=== PATIENT | female | born 1935 | race Caucasian/White ===

== ENCOUNTER 2018-07-06 14:35 | Inpatient (IN) | payer MEDICARE ==
[2018-07-06] MEDS ORDERED: ORPHENADRINE 30 MG/ML 2 ML VIAL IM STA (15:30)
[2018-07-06] MEDS ORDERED: methylPREDNISolone SOD SUCCI 125 MG/2 ML VIAL IM ONE (15:30)
[2018-07-06] MEDS ORDERED: MORPHINE SULFATE 4 MG/ML SYRINGE IM STA (15:30)
[2018-07-06] MEDS ORDERED: HYDROcodone/APAP 5-325MG 1 EACH TAB PO STA (15:41)
--- NOTE | 2018-07-06 15:59 | ED ---
Lower Extremity Injury HPI - General Source: patient, family Mode of arrival: wheelchair Limitations: no limitations <Ngozi Polanco - Last Filed: 07/06/18 18:52> <Luis Carrington - Last Filed: 07/06/18 19:05> - General Chief Complaint: Extremity Injury, Lower Stated Complaint: Foot injury Time Seen by Provider: 07/06/18 15:28 - History of Present Illness Initial Comments: 82-year-old female patient presents the emergency department today for evaluation of pain and swelling to the left foot and ankle. Patient does have this history of Alzheimer's and family provides most of history. They state the patient had a fall on Friday. Grandson states that she got up out of her chair and tripped. He denies her hitting her head or any loss of consciousness. States that she has been complaining of pain to the ankle and foot since then. States they have kept it wrapped however it seemed to be more swollen and she is now unable to ambulate. States that she has been taking ibuprofen for pain but it is not helping. Denies any new neck or back pain. Patient denies any headache, chest pain, shortness of breath, dizziness, weakness, abdominal pain, nausea, vomiting, or difficulties with bowel movements or urination. (Ngozi Polanco) - Related Data Allergies Allergy/AdvReac Type Severity Reaction Status Date / Time No Known Allergies Allergy Verified 07/06/18 15:05 Review of Systems ROS Other: All systems not noted in ROS Statement are negative. <Ngozi Polanco - Last Filed: 07/06/18 18:52> ROS Other: All systems not noted in ROS Statement are negative. <Luis Carrington - Last Filed: 07/06/18 19:05> ROS Statement: Those systems with pertinent positive or pertinent negative responses have been documented in the HPI. Past Medical History Past Medical History: Dementia, Hyperlipidemia, Hypertension History of Any Multi-Drug Resistant Organisms: None Reported Past Surgical History: Breast Surgery, Hysterectomy Past Psychological History: No Psychological Hx Reported Smoking Status: Never smoker Past Alcohol Use History: None Reported Past Drug Use History: None Reported <Ngozi Polanco - Last Filed: 07/06/18 18:52> General Exam Limitations: no limitations General appearance: alert, in no apparent distress, other (Social well-developed , well-nourished elderly female patient in no acute distress. Vital signs upon presentation are temperature 98.4F, pulse 71, respirations 20, blood pressure 107/86, pulse ox 96% on room air.) Eye exam: Present: normal appearance, PERRL, EOMI. Absent: scleral icterus, conjunctival injection, periorbital swelling ENT exam: Present: normal exam, normal oropharynx, mucous membranes moist Neck exam: Present: normal inspection, full ROM, other (Nontender, no step-off, no deformity to firm midline palpation of the posterior cervical spine. Full range of motion without pain or limitation.). Absent: tenderness, meningismus, lymphadenopathy Respiratory exam: Present: normal lung sounds bilaterally. Absent: respiratory distress, wheezes, rales, rhonchi, stridor Cardiovascular Exam: Present: regular rate, normal rhythm, normal heart sounds. Absent: systolic murmur, diastolic murmur, rubs, gallop, clicks GI/Abdominal exam: Present: soft, normal bowel sounds. Absent: distended, tenderness, guarding, rebound, rigid Back exam: Present: normal inspection, other (Nontender, no step-off, no deformity to firm midline palpation of the thoracic and lumbar vertebrae. Full range of motion without pain or limitation.). Absent: vertebral tenderness Neurological exam: Present: alert, oriented X3, CN II-XII intact Psychiatric exam: Present: normal affect, normal mood Skin exam: Present: warm, dry, intact, normal color. Absent: rash <Ngozi Polanco - Last Filed: 07/06/18 18:52> Course <Ngozi Polanco - Last Filed: 07/06/18 18:52> <Luis Carrington - Last Filed: 07/06/18 19:05> Vital Signs 07/06/18 07/06/18 07/06/18 15:02 17:32 17:45 Temperature 98.4 F Pulse Rate 71 71 63 Respiratory 20 18 Rate Blood Pressure 107/86 178/83 179/81 O2 Sat by Pulse 96 100 100 Oximetry 07/06/18 07/06/18 07/06/18 17:48 17:53 17:58 Temperature Pulse Rate 63 135 H 102 H Respiratory 18 20 22 Rate Blood Pressure 157/72 211/90 230/101 O2 Sat by Pulse 99 98 99 Oximetry 07/06/18 07/06/1807/06/18 18:03 18:10 18:35 Temperature Pulse Rate 74 66 64 Respiratory 18 18 18 Rate Blood Pressure 184/83 158/71 136/69 O2 Sat by Pulse 98 100 100 Oximetry - Reevaluation(s) Reevaluation #1: 07/06/18 18:23 And P supervision: I personally saw and examined the patient. I reviewed and agree with the [employer] findings including all diagnostic interpretation treatment plans is written unless otherwise stated. I did discuss the findings with the patient's family members were present. (Luis Carrington) Procedures <Ngozi Polanco - Last Filed: 07/06/18 18:52> - Orthopedic Fracture Reduction Fracture #1 Consent Obtained: verbal consent, emergent situation Side: left Fracture Reduction Location: tibia, fibula Analgesia: procedural sedation Technique: direct manipulation Post Reduction X-rays Demonstrate: anatomical reduction Post-Reduction Neuro Exam: intact Post-Reduction Vascular Exam: intact Splint Applied: Yes (Short leg OCL posterior mold and stirrup) - Procedural Sedation Procedural Sedation Start Time: 17:46 Indications: fracture/dislocation reduction ASA Class: III Mallampati Airway Score: 2 Preparation: night monitor applied, pulse oximeter, capnometry used, supplemental O2 applied, reversal agents at bedside, suction/airway equipment at bedside, IV secured IV Propofol Dose (mgs): 70 Patient Tolerated Procedure: well, other (The patient did demonstrate some nausea vomiting she was adequately treated and was elevated she was given a tonsil suction the patient was awake alert during this episode.) <Luis Carrington - Last Filed: 07/06/18 19:05> - Procedural Sedation Additional Comments: Total in-service time 26 minutes seizure started at 1746 and was completed 18: 12. (Luis Carrington) Medical Decision Making - Radiology Data Radiology results: report reviewed, image reviewed <Ngozi Polanco - Last Filed: 07/06/18 18:52> <Luis Carrington - Last Filed: 07/06/18 19:05> - Medical Decision Making 82-year-old female patient percents to the emergency department today for evaluation of left ankle pain since Friday after a fall injury. Physical examination did reveal soft tissue swelling surrounding the left ankle and foot. Neurovascular status is intact. X-ray was obtained and did show acute fracture dislocation of the left ankle. Attending Dr. Carrington was in to evaluate the patient, did perform conscious sedation with closed reduction of the left ankle. Did have anatomic improvement on postreduction x-ray. My attending did speak to the orthopedic physician operational risk consultant Dr. Osborne who agrees to accept patient as an admission. Patient would be unable to tolerate going home as she does have dementia and is unable to ambulate. We will obtain preoperative labs and consult medical for preop clearance. (Ngozi Polanco) - Radiology Data 3 views of the left ankle and foot are obtained. There is acute oblique displaced fractures of the lateral malleolus above more days. There is acute displaced transverse fracture to the medial malleolus with lateral shifting of the distal fracture fragment. There is mortise disruption which is displaced laterally and had abnormal lateral angulation. Moderate diffuse subcutaneous edema is present. On lateral view there is fracture extension into the posterior malleolus. There are small anterior and tiny superior calcaneal spurs. There is no additional acute fracture dislocation evident in the left foot. Moderate diffuse subcutaneous edema is seen. Flexion and ptosis noted. Impression by Dr. Vallejo shows acute displaced try malleolus fracture with mortise disruption. Two-view postreduction x-ray of the left ankle was obtained. There is interval improvement in the alignment when compared with previous reduction. Impression is by Nika Tapia. (Ngozi Polanco) Disposition Decision to Admit Reason: Admit from EC Decision Date: 07/06/18 Decision Time: 18:56 <Ngozi Polanco - Last Filed: 07/06/18 18:52> <Luis Carrington - Last Filed: 07/06/18 19:05> Clinical Impression: Trimalleolar fracture of left ankle, Fracture dislocation of left ankle Disposition: ADMITTED IP TO THIS [facility] Condition: Serious Referrals: Rajeev Kyle MD [Primary Care Provider] - 1-2 days
--- NOTE | 2018-07-06 16:22 | XR ---
EXAMINATION TYPE: XR ankle complete LT, XR foot complete LT DATE OF EXAM: 07/06/2018 CLINICAL HISTORY: Pain after fall injury. TECHNIQUE: Frontal, lateral and oblique images of the left ankle and foot are obtained. COMPARISON: None. FINDINGS: There is acute oblique displaced fracture through the lateral malleolus above mortise. The re is acute displaced transverse fracture through the medial malleolus with lateral shifting of dista l fracture fragment. There is mortise disruption which is displaced laterally and has abnormal latera l angulation. Moderate diffuse subcutaneous edema is present. On lateral view there is fracture exten jena into the posterior malleolus. There are small inferior and tiny superior calcaneal spurs. There is no additional acute fracture or dislocation evident in the left foot. Moderate diffuse subcu taneous edema is seen. Flexion in toes is noted. IMPRESSION: There is acute displaced trimester fracture with mortise disruption. (Initial encounter closed type post traumatic fracture)
[2018-07-06] MEDS ORDERED: PROPOFOL 10 MG/ML 20 ML VIAL IV STA (17:01)
[2018-07-06] MEDS ORDERED: ONDANSETRON 4 MG/2 ML VIAL IVP STA (17:57)
--- NOTE | 2018-07-06 18:37 | XR ---
PROCEDURE: XR ankle limited LT -2V DATE AND TIME: 07/06/2018 6:09 PM CLINICAL INDICATION: H Post reduction TECHNIQUE: Department protocol. COMPARISON: None FINDINGS: Orthogonal views taken through a cast, obscuring detail. The anatomic positioning and alignment of the fracture fragments are documented. There is interval improvement in the alignment when compared with prereduction 07/06/2018 views at 4: 16 PM. IMPRESSION: Post reduction views.
[2018-07-06] MEDS ORDERED: NALOXONE 0.4 MG/ML 1 ML VIAL IV PRN (18:49)
[2018-07-06] MEDS ORDERED: ONDANSETRON 4 MG/2 ML VIAL IVP PRN (18:49)
[2018-07-06] MEDS ORDERED: MORPHINE SULFATE 4 MG/ML SYRINGE IV PRN (18:49)
[2018-07-06 19:41] LABS: Basophils % (A) 0 %; Eosinophils # (A) 0.1 k/uL (0-0.7); Eosinophils % (A) 1 %; HCT 34.1 % (34.0-46.0); HGB 11.1 gm/dL (11.4-16.0); Lymphocytes # (A) 1.5 k/uL (1.0-4.8); Lymphocytes % (A) 21 %; MCH 25.3 pg (25.0-35.0); MCHC 32.5 g/dL (31.0-37.0); MCV 77.8 fL (80.0-100.0); Mean Platelet Volume 7.4; Microcytosis Slight; Monocytes # (A) 0.5 k/uL (0-1.0); Monocytes % (A) 7 %; Neutrophils # (A) 4.8 k/uL (1.3-7.7); Neutrophils % (A) 68 %; Platelet Count 262 k/uL (150-450); RBC 4.39 m/uL (3.80-5.40); RDW 15.5 % (11.5-15.5); WBC 7.1 k/uL (3.8-10.6)
[2018-07-06 19:48] LABS: Albumin 3.8 g/dL (3.5-5.0); Calcium 8.6 mg/dL (8.4-10.2); Potassium 3.4 mmol/L (3.5-5.1); Total Bilirubin 0.8 mg/dL (0.2-1.3); Total Protein 7.2 g/dL (6.3-8.2)
--- NOTE | 2018-07-06 19:52 | XR ---
EXAMINATION: XR chest 1V portable DATE AND TIME: 07/06/2018 7:26 PM CLINICAL INDICATION: Pain TECHNIQUE: AP upright portable COMPARISON: None. FINDINGS: There is consolidative opacity in the right perihilar position, appearing to reside within the right lower lobe. Hemidiaphragms are both elevated consistent with low lung inflation at the moment of X-ray exposure. The pleural spaces appear to be negative, as seen. The cardiac silhouette is not enlarged. The remainder of the mediastinal silhouette is unremarkable. The skeletal structures and soft tissues are negative for acute findings. IMPRESSION: Suspect right lower lobe pneumonia.
[2018-07-06 19:54] LABS: Partial Thromboplastin Time 25.3 sec (22.0-30.0); Prothrombin Time 9.7 sec (9.0-12.0)
[2018-07-06] MEDS: MEMANTINE 10 MG TAB PO SCH (22:45)
[2018-07-06] MEDS: ATORVASTATIN 40 MG TAB PO SCH (22:45)
[2018-07-06] MEDS: MELATONIN 5 MG TABLET PO PRN (22:45)
[2018-07-06] MEDS: traMADol 50 MG TAB PO PRN (22:45)
[2018-07-07] MEDS: MEMANTINE 10 MG TAB PO SCH ×2 (08:56→21:10)
--- NOTE | 2018-07-07 10:54 | P.CNOR ---
History of Present Illness - [facility] Consult date: 07/07/18 Requesting physician: Lico Osborne Consult reason: fracture History of present illness: Patient is an 82-year-old female patient admitted through the emergency department yesterday for evaluation of pain and swelling to the left foot and ankle. Patient does have history of Alzheimer's and family provides most of history. They state the patient had a fall on Friday. Grandson states that she got up out of her chair and tripped. He denies her hitting her head or any loss of consciousness. Xrays in the ED showed a left trimalleoular ankle fracture dislocation which was then reduced and placed in a splint. She denies any new neck or back pain. Patient denies any numbness, tingling, calf pain, headache, chest pain, shortness of breath, dizziness, weakness, abdominal pain, nausea, vomiting, or difficulties with bowel movements or urination Review of Systems All systems: negative Constitutional: Denies chills, Denies fever Eyes: denies blurred vision, denies pain Ears, nose, mouth and throat: Denies headache, Denies sore throat Cardiovascular: Denies chest pain, Denies shortness of breath Respiratory: Denies cough Gastrointestinal: Denies abdominal pain, Denies diarrhea, Denies nausea, Denies vomiting Genitourinary: Denies dysuria, Denies hematuria Musculoskeletal: Denies myalgias Integumentary: Denies pruritus, Denies rash Neurological: Denies numbness, Denies weakness Psychiatric: Denies anxiety, Denies depression Endocrine: Denies fatigue, Denies weight change Past Medical History Past Medical History: CVA/TIA, Dementia, GERD/Reflux, Hyperlipidemia, Hypertension, Memory Impairment, Rheumatoid Arthritis (RA) Additional Past Medical History / Comment(s): neuropathy,tia's, faell few weeks ago broke ris rt side. tx in past for dm with po meds and insulin -but now just diet controlled History of Any Multi-Drug Resistant Organisms: None Reported Past Surgical History: Breast Surgery, Hysterectomy Additional Past Surgical History / Comment(s): benign tumor removed from breast , fatty tumor removed rt arm, lt knee replacment Past Anesthesia/Blood Transfusion Reactions: No Reported Reaction Smoking Status: Never smoker - Past Family History Mother Family Medical History: Diabetes Mellitus Father Family Medical History: No Reported History Additional Family Medical History / Comment(s): from old age Medications and Allergies Home Medications Medication Instructions Recorded Confirmed Type Acetaminophen [Tylenol] 325 mg PO Q4H PRN 07/06/18 07/06/18 History Atorvastatin [Lipitor] 40 mg PO HS 07/06/18 07/06/18 History Benazepril HCl 20 mg PO DAILY 07/06/18 07/06/18 History Calcium Carbonate [Calcium] 600 mg PO DAILY 07/06/18 07/06/18 History DULoxetine HCL [Cymbalta] 20 mg PO DAILY 07/06/18 07/06/18 History Docusate [Colace] 100 mg PO DAILY 07/06/18 07/06/18 History Memantine [Namenda] 10 mg PO BID 07/06/18 07/06/18 History Multivitamins, Thera [Multivitamin 1 tab PO DAILY 07/06/18 07/06/18 History (formulary)] Allergies Allergy/AdvReac Type Severity Reaction Status Date / Time No Known Allergies Allergy Verified 07/06/18 15:05 Physical Examination Inspection of the left lower extremity shows a moderately swollen left ankle. There are no wounds or erythema. There is no obvious deformity. The ankle and foot are warm to touch. ROM is not tested due to fracture. She is able to wiggle all toes. She has sensation in all toes. There is 1+ DP pulse and less than 2 sec cap refill present. Calf is soft and nontender. Results XRays of the left ankle show a displaced trimalleolar ankle fracture. - Labs Labs: Abnormal Lab Results - Last 24 Hours (Table) 07/06/18 07/06/18 Range/Units 18:30 18:30 Hgb 11.1 L (11.4-16.0) gm/dL MCV 77.8 L (80.0-100.0) fL Potassium 3.4 L (3.5-5.1) mmol/L BUN 20 H (7-17) mg/dL Creatinine 1.27 H (0.52-1.04) mg/dL Glucose 109 H (74-99) mg/dL H & H 07/06/18 Range/Units 18:30 Hgb 11.1 L (11.4-16.0) gm/dL Hct 34.1 (34.0-46.0) % Coagulation 07/06/18 Range/Units 18:30 INR 1.0 (<1.2) Result Diagrams: 07/06/18 18:30 07/06/18 18:30 - Diagnostic results Ankle/Foot x-ray: report reviewed, image reviewed Assessment and Plan (1) Fracture dislocation of left ankle Narrative/Plan: Plan will be to proceed with surgical intervention including ORIF of left trimal ankle fracture once sweling subsides. We will tentatively plan for 07/09/18. She will need pre-op clearance. She is to be NPO after midnight 07/08/18. Maintain Splint, elevation and ice in the interim. Recommend continued DVT prophylaxis and pain management. Current Visit: Yes Status: Acute Priority: Medium Code(s): S82.892A - OTH FRACTURE OF LEFT LOWER LEG, INIT FOR CLOS FX SNOMED Code(s): 157088223 (2) Trimalleolar fracture of left ankle Current Visit: Yes Status: Acute Priority: Medium Code(s): S82.852A - DISPLACED TRIMALLEOLAR FRACTURE OF LEFT LOWER LEG, INIT SNOMED Code(s): 590291513 Time with Patient: Less than 30
[2018-07-07] MEDS: traMADol 50 MG TAB PO PRN ×2 (12:45→21:10)
--- NOTE | 2018-07-07 20:49 | US ---
EXAMINATION TYPE: US kidneys/renal and bladder DATE OF EXAM: 07/07/2018 COMPARISON: NONE CLINICAL HISTORY: urinary retention. Urinary retention. Exam limitations due to broken ankle unable t o roll and body habitus. EXAM MEASUREMENTS: Right Kidney: 10.2 x 4.8 x 4.1 cm Left Kidney: 10.1 x 4.4 x 4.1 cm Right Kidney: No hydronephrosis or masses seen Left Kidney: No hydronephrosis or masses seen Bladder: Appears anechoic limited due to complex mass. Bilateral Jets seen: Not definitely seen. There is no evidence for hydronephrosis at this point in time. The urinary bladder is anechoic. There is a complex mass with septations seen mid line measuring 16.1 x 11.0 x 10.8cm question ovarian in origin. IMPRESSION: No evidence of renal stone or obstruction. 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
[2018-07-07] MEDS: ATORVASTATIN 40 MG TAB PO SCH (21:11)
--- NOTE | 2018-07-07 22:08 | P.CONS ---
History of Present Illness - Reason for Consult Consult date: 07/07/18 Medical management of hypertension and surgical clearance. - Chief Complaint Right ankle pain status post fall - History of Present Illness Patient is a 82-year-old female with a known history of CVA/TIA, Dementia, GERD/ Reflux, Hyperlipidemia, Hypertension, Memory Impairment, Rheumatoid Arthritis ( RA), peripheral neuropathy with history of diabetes, currently diet-controlled was brought to the ER with complaints of right foot and ankle pain. Patient is a poor historian due to underlying dementia. As per her grandson, patient came home from attending a marriage. After coming home patient was trying to get out of chair and tipped over and fell. Patient's grandson heard the sound and went over to check. Patient denied any hitting her head. No loss of consciousness. Since then she has been complaining of left pain. Patient was having increased swelling and pain which made her to come to the hospital. Denied any neck pain and back pain. No history of seizures. Patient denies any headache, chest pain, shortness of breath, dizziness, weakness, abdominal pain, nausea, vomiting, or difficulties with bowel movements or urination. Recently patient was having urinary incontinence and was seen by urology. Recommended to get ultrasound kidneys. X-ray of the left ankle showed acute displaced trimalleolar fracture with the mortise disruption. Patient is being followed by orthopedic surgery and is planning for OR. Ultrasound renal showed no hydronephrosis. 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 Chest x-ray showed suspected right lower lobe pneumonia. Review of Systems Abdomen: Patient denied nausea vomiting and diarrhea and abdominal pain. Cardiovascular: Patient denies any chest pain or short of breath no palpitations. Respiratory: patient denied any cough is from production. No shortness of breath Neurologic: Patient denied any numbness or tingling headache. Musculoskeletal: Patient does have left ankle pain. Complete review of systems could not be obtained from the patient due to underlying dementia. Past Medical History Past Medical History: CVA/TIA, Dementia, GERD/Reflux, Hyperlipidemia, Hypertension, Memory Impairment, Rheumatoid Arthritis (RA) Additional Past Medical History / Comment(s): neuropathy,tia's, faell few weeks ago broke ris rt side. tx in past for dm with po meds and insulin -but now just diet controlled History of Any Multi-Drug Resistant Organisms: None Reported Past Surgical History: Breast Surgery, Hysterectomy Additional Past Surgical History / Comment(s): benign tumor removed from breast , fatty tumor removed rt arm, lt knee replacment Past Anesthesia/Blood Transfusion Reactions: No Reported Reaction Smoking Status: Never smoker - Past Family History Mother Family Medical History: Diabetes Mellitus Father Family Medical History: No Reported History Additional Family Medical History / Comment(s): from old age Medications and Allergies Home Medications Medication Instructions Recorded Confirmed Type Acetaminophen [Tylenol] 325 mg PO Q4H PRN 07/06/18 07/06/18 History Atorvastatin [Lipitor] 40 mg PO HS 07/06/18 07/06/18 History Benazepril HCl 20 mg PO DAILY 07/06/18 07/06/18 History Calcium Carbonate [Calcium] 600 mg PO DAILY 07/06/18 07/06/18 History DULoxetine HCL [Cymbalta] 20 mg PO DAILY 07/06/18 07/06/18 History Docusate [Colace] 100 mg PO DAILY 07/06/18 07/06/18 History Memantine [Namenda] 10 mg PO BID 07/06/18 07/06/18 History Multivitamins, Thera [Multivitamin 1 tab PO DAILY 07/06/18 07/06/18 History (formulary)] Allergies Allergy/AdvReac Type Severity Reaction Status Date / Time No Known Allergies Allergy Verified 07/06/18 15:05 Physical Exam Vitals: Vital Signs Temp Pulse Pulse Resp BP BP Pulse Ox 07/07/18 08:00 68 16 07/07/18 07:00 98.0 F 68 16 123/63 98 07/07/18 03:15 98.9 F 73 20 132/62 99 07/06/18 21:48 98.4 F 64 20 173/71 98 07/06/18 20:24 97.5 F L 61 18 163/85 100 07/06/18 18:35 64 18 136/69 100 07/06/18 18:10 66 18 158/71 100 07/06/18 18:03 74 18 184/83 98 07/06/18 17:58 102 H 22 230/101 99 07/06/18 17:53 135 H 20 211/90 98 07/06/18 17:48 63 18 157/72 99 07/06/18 17:45 63 18 179/81 100 07/06/18 17:32 71 178/83 100 07/06/18 15:02 98.4 F 71 20 107/86 96 Intake and Output 07/06/18 07/07/18 07/07/18 22:59 06:59 14:59 Intake Total 0 Balance 0 Intake: Oral 0 Other: Voiding Method Bedpan # Voids 0 Weight 108.862 kg PHYSICAL EXAMINATION: Patient is lying in the bed comfortably, no acute distress, awake alert and oriented x1.. HEENT: Normocephalic. Neck is supple. Pupils reactive. Nostrils clear. Oral cavity is moist. Ears reveal no drainage. Neck reveals no JVD, carotid bruits, or thyromegaly. CHEST EXAMINATION: Trachea is central. Symmetrical expansion. Lung spencer clear to auscultation and percussion. CARDIAC: Normal S1, S2 with no gallops. No murmurs ABDOMEN: Soft. Distended. Bowel sounds normal. No abdominal bruits. Extremities: reveal no edema in the right lower extremity. Left lower extremity /ankle is swollen and Nelson bandaged. No clubbing or cyanosis Neurologically awake, alert, oriented x1 with well-coordinated movements. No focal deficits noted Skin: No rash or skin lesions. Psychiatric: Coperative. Could not be assessed completely Musculoskeletal: No joint swelling or deformity. Normal range of motion in all other joints except above. Results CBC & Chem 7: 07/06/18 18:30 07/06/18 18:30 Labs: Abnormal Lab Results - Last 24 Hours (Table) 07/06/18 07/06/18 Range/Units 18:30 18:30 Hgb 11.1 L (11.4-16.0) gm/dL MCV 77.8 L (80.0-100.0) fL Potassium 3.4 L (3.5-5.1) mmol/L BUN 20 H (7-17) mg/dL Creatinine 1.27 H (0.52-1.04) mg/dL Glucose 109 H (74-99) mg/dL Assessment and Plan Assessment: Left ankle fracture status post mechanical fall Possible right lower lobe pneumonia Mild Acute kidney injury with possible CK D3 Recent history of rib fractures as per family. Peripheral neuropathy with history of diabetes. Was on insulin before. Currently diet-controlled Large ovarian cystic tumor History of CVA/TIA Dementia Alzheimer's GERD Hypertension Hyperlipidemia History of rheumatoid arthritis DVT prophylaxis Plan: Patient will be continued on pain medications and bowel regimen. Continue with home medications and antibiotics in the form of azithromycin and ceftriaxone.. DVT prophylaxis with heparin subcu. Patient does not have active chest pain or shortness of breath. Does history of CVA/TIA and possible CK D-3. Patient is a moderate risk for low risk orthopedic surgery. We will continue to follow closely and further recommendations based on the clinical course. Prognosis is guarded. Discussed with the family in detail at bedside. Time with Patient: Greater than 30
[2018-07-07] MEDS: AZITHROMYCIN 500 MG TAB PO SCH (23:16)
[2018-07-07] MEDS: HEPARIN SODIUM,PORCINE 5,000 UNIT/ML 1 ML VIAL SQ SCH (23:16)
[2018-07-08] MEDS: HEPARIN SODIUM,PORCINE 5,000 UNIT/ML 1 ML VIAL SQ SCH ×3 (09:28→23:45)
[2018-07-08] MEDS: AZITHROMYCIN 500 MG TAB PO SCH (09:28)
[2018-07-08] MEDS: MEMANTINE 10 MG TAB PO SCH ×2 (09:28→20:40)
[2018-07-08] MEDS: DULoxetine HCL 20 MG CAPSULE.DR PO SCH (09:28)
[2018-07-08] MEDS: LISINOPRIL 20 MG TAB PO SCH (09:28)
[2018-07-08] MEDS: DOCUSATE 100 MG CAP PO SCH (09:28)
[2018-07-08 11:05] LABS: Basophils % (A) 0 %; Eosinophils # (A) 0.2 k/uL (0-0.7); Eosinophils % (A) 4 %; HCT 30.5 % (34.0-46.0); HGB 9.9 gm/dL (11.4-16.0); Lymphocytes # (A) 1.4 k/uL (1.0-4.8); Lymphocytes % (A) 26 %; MCH 25.6 pg (25.0-35.0); MCHC 32.5 g/dL (31.0-37.0); MCV 78.7 fL (80.0-100.0); Monocytes # (A) 0.3 k/uL (0-1.0); Monocytes % (A) 6 %; Neutrophils # (A) 3.5 k/uL (1.3-7.7); Neutrophils % (A) 62 %; Platelet Count 213 k/uL (150-450); RBC 3.88 m/uL (3.80-5.40); RDW 15.1 % (11.5-15.5); WBC 5.6 k/uL (3.8-10.6)
[2018-07-08 11:17] LABS: Calcium 8.3 mg/dL (8.4-10.2); Potassium 3.6 mmol/L (3.5-5.1)
--- NOTE | 2018-07-08 14:04 | P.PN ---
Subjective Progress Note Date: 07/08/18 Principal diagnosis: Left Timal ankle fracture Patient is pending surgical correction of her left trimal ankle fracture. Pain is controlled today at rest in splint. She has no new complaints. She denies numbness, tingling or calf pain. Review of systems is negative for fever, chills, chest pain, shortness of breath or other Objective - Vital Signs Vital signs: Vital Signs Temp 98.1 F 07/08/18 07:00 Pulse 64 07/08/18 07:00 Resp 20 07/08/18 07:00 BP 139/80 07/08/18 07:00 Pulse Ox 98 07/08/18 07:00 Intake & Output 07/07/18 07/08/18 07/08/18 18:59 06:59 18:59 Intake Total 200 Balance 200 Intake: Oral 200 Other: Voiding Method Bedpan Bedpan # Voids 1 1 - Exam There is moderate edema. No blisters or wounds. Mild improvement. Neurovascular status is intact throughout the lower extremity with motor and sensation fully intact. Calf is soft and nontender. 2+ dorsalis pedis pulse and less than 2 second cap refill is present. - Constitutional General appearance: Present: no acute distress - Labs CBC & Chem 7: 07/08/18 10:31 07/08/18 10:31 Labs: Abnormal Lab Results - Last 24 Hours (Table) 07/08/18 07/08/18 Range/Units 10:31 10:31 Hgb 9.9 L (11.4-16.0) gm/dL Hct 30.5 L (34.0-46.0) % MCV 78.7 L (80.0-100.0) fL Chloride 109 H (98-107) mmol/L BUN 20 H (7-17) mg/dL Creatinine 1.26 H (0.52-1.04) mg/dL Glucose 141 H (74-99) mg/dL Calcium 8.3 L (8.4-10.2) mg/dL Assessment and Plan (1) Fracture dislocation of left ankle Narrative/Plan: Plan will be to proceed with surgical intervention including ORIF of left trimal ankle fracture. We will tentatively plan for 07/09/18. She will need pre-op clearance. She is to be NPO after midnight 07/08/18. Maintain Splint , elevation and ice in the interim. Recommend continued DVT prophylaxis and pain management. Current Visit: Yes Status: Acute Priority: Medium Code(s): S82.892A - OTH FRACTURE OF LEFT LOWER LEG, INIT FOR CLOS FX SNOMED Code(s): 878314582 (2) Trimalleolar fracture of left ankle Current Visit: Yes Status: Acute Priority: Medium Code(s): S82.852A - DISPLACED TRIMALLEOLAR FRACTURE OF LEFT LOWER LEG, INIT SNOMED Code(s): 338749464 Time with Patient: Less than 30
[2018-07-08] MEDS: traMADol 50 MG TAB PO PRN (15:22)
--- NOTE | 2018-07-08 17:05 | P.HPOB ---
History of Present Illness H&P Date: 07/08/18 Chief Complaint: Pelvic mass This is an 82-year-old 0 woman who was admitted after an unfortunate trip and fall resulting in a ankle fracture that is to require surgical repair. As a part of her hospitalization she did undergo a abdominal ultrasound due to history of urinary retention. This was to assess bladder and kidneys however incidentally a 16 x 11 cm cystic pelvic mass likely of ovarian origin was noted. The patient is pleasant and communicative and does report a history of difficulty emptying her bladder completely. She also reports starting several months ago feeling like her abdomen is "hard". That actually has resolved and she says her abdomen feels soft now. She had been scheduled to undergo ultrasound evaluation for urinary retention but then this fall happened and she was admitted. She denies any abdominal pain. She reports a hysterectomy many many years ago. All of her children are adopted and she had no pregnancies herself. She is uncertain the reason for her hysterectomy. She denies any previous knowledge of pelvic mass or gynecologic problems. She denies vaginal bleeding, blood in the stool or urine. She is accompanied by her daughter who confirms the history as stated. Review of Systems Constitutional: Reports weakness Ears, nose, mouth and throat: Denies headache Breasts: bilateral: masses Cardiovascular: Denies chest pain, Denies shortness of breath Respiratory: Denies cough Gastrointestinal: Denies abdominal pain, Denies BRBPR, Denies change in bowel habits, Denies constipation, Denies diarrhea, Denies heartburn, Denies nausea, Denies vomiting Genitourinary: Reports difficulty voiding, Reports incomplete emptying, Denies abnormal vaginal bleeding, Denies dysuria, Denies hematuria, Denies pelvic pain , Denies stress incontinence Musculoskeletal: Reports as per HPI Neurological: Reports memory loss Hematologic/Lymphatic: Denies easy bleeding, Denies easy bruising Past Medical History Past Medical History: CVA/TIA, Dementia, GERD/Reflux, Hyperlipidemia, Hypertension, Memory Impairment, Rheumatoid Arthritis (RA) Additional Past Medical History / Comment(s): neuropathy,tia's, faell few weeks ago broke ris rt side. tx in past for dm with po meds and insulin -but now just diet controlled History of Any Multi-Drug Resistant Organisms: None Reported Past Surgical History: Breast Surgery, Hysterectomy Additional Past Surgical History / Comment(s): benign tumor removed from breast , fatty tumor removed rt arm, lt knee replacment Past Anesthesia/Blood Transfusion Reactions: No Reported Reaction Smoking Status: Never smoker - Past Family History Mother Family Medical History: Diabetes Mellitus Father Family Medical History: No Reported History Additional Family Medical History / Comment(s): from old age Medications and Allergies Home Medications Medication Instructions Recorded Confirmed Type Acetaminophen [Tylenol] 325 mg PO Q4H PRN 07/06/18 07/06/18 History Atorvastatin [Lipitor] 40 mg PO HS 07/06/18 07/06/18 History Benazepril HCl 20 mg PO DAILY 07/06/18 07/06/18 History Calcium Carbonate [Calcium] 600 mg PO DAILY 07/06/18 07/06/18 History DULoxetine HCL [Cymbalta] 20 mg PO DAILY 07/06/18 07/06/18 History Docusate [Colace] 100 mg PO DAILY 07/06/18 07/06/18 History Memantine [Namenda] 10 mg PO BID 07/06/18 07/06/18 History Multivitamins, Thera [Multivitamin 1 tab PO DAILY 07/06/18 07/06/18 History (formulary)] Allergies Allergy/AdvReac Type Severity Reaction Status Date / Time No Known Allergies Allergy Verified 07/06/18 15:05 Exam Vital Signs Temp Pulse Resp BP Pulse Ox 07/08/18 15:00 97.7 F 78 17 193/78 100 07/08/18 07:00 98.1 F 64 20 139/80 98 07/07/18 22:52 98.2 F 67 16 137/75 96 Intake and Output 07/08/18 07/08/18 07/08/18 06:59 14:59 22:59 Intake Total 50 Balance 50 Intake: Intake, IV Titration 50 Amount cefTRIAXone 1,000 mg In 50 Sodium Chloride 0.9% 50 ml @ 100 mls/hr IVPB Q24H [facility] Rx#:[id number] Other: Voiding Method Bedpan # Voids 1 This is a pleasant elderly -[place] female in no obvious distress. Left lower extremity with orthopedic stabilization. HEENT exam remarkable for some absent dentition. Her breathing is unlabored and her heart is of regular rate and rhythm. The abdomen is obese, soft, nontender and nondistended. There is no evidence of fluid wave or ascites. She has no rebound or guarding. She does have an incontinence garment and which is inspected with no evidence of vaginal bleeding. Pelvic examination is deferred secondary to body habitus and inappropriate setting for FACTORY ENGINEER exam. Neurologically the patient is alert and oriented and cooperative. Results Result Diagrams: 07/08/18 10:31 07/08/18 10:31 Abnormal Lab Results - Last 24 Hours (Table) 07/08/18 07/08/18 Range/Units 10:31 10:31 Hgb 9.9 L (11.4-16.0) gm/dL Hct 30.5 L (34.0-46.0) % MCV 78.7 L (80.0-100.0) fL Chloride 109 H (98-107) mmol/L BUN 20 H (7-17) mg/dL Creatinine 1.26 H (0.52-1.04) mg/dL Glucose 141 H (74-99) mg/dL Calcium 8.3 L (8.4-10.2) mg/dL US - abdomen: report reviewed, image reviewed, other (16 x 11 x 10 cm septated pelvic mass with no increase in Doppler flow to the septations. No ascites or free fluid noted in the pelvis.) Assessment and Plan (1) Pelvic mass Narrative/Plan: 82-year-old 0 woman status post hysterectomy decades ago who has incidental finding of 16 cm septated pelvic mass on abdominal ultrasound. I reviewed findings in detail with the patient and her daughter. 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 I recommend a CA-125 level to help with the differential diagnosis. My review of the images indicate this mass is not compressing significantly the ureters or kidneys or bladder. There is no contraindication off from my standpoint for proceeding with the planned orthopedic procedure. I will follow up with her CA 125 level and recommendations. Current Visit: Yes Status: Acute Code(s): R19.00 - INTRA-ABD AND PELVIC SWELLING, MASS AND LUMP, UNSP SITE SNOMED Code(s): 66299673 (2) Fracture dislocation of left ankle Current Visit: Yes Status: Acute Priority: Medium Code(s): S82.892A - OTH FRACTURE OF LEFT LOWER LEG, INIT FOR CLOS FX SNOMED Code(s): 339343768 (3) Trimalleolar fracture of left ankle Current Visit: Yes Status: Acute Priority: Medium Code(s): S82.852A - DISPLACED TRIMALLEOLAR FRACTURE OF LEFT LOWER LEG, INIT SNOMED Code(s): 683771690
[2018-07-08] MEDS: ATORVASTATIN 40 MG TAB PO SCH (20:40)
[2018-07-09 01:15] LABS: Glucose,Whole Blood 149 mg/dL (75-99)
[2018-07-09] MEDS: MELATONIN 5 MG TABLET PO PRN ×2 (01:31→23:11)
[2018-07-09] MEDS: HEPARIN SODIUM,PORCINE 5,000 UNIT/ML 1 ML VIAL SQ SCH ×3 (09:58→23:11)
[2018-07-09] MEDS: MEMANTINE 10 MG TAB PO SCH ×2 (10:00→21:55)
[2018-07-09] MEDS: DULoxetine HCL 20 MG CAPSULE.DR PO SCH (10:00)
[2018-07-09] MEDS: traMADol 50 MG TAB PO PRN (10:00)
[2018-07-09] MEDS: LISINOPRIL 20 MG TAB PO SCH (10:00)
[2018-07-09] MEDS: AZITHROMYCIN 500 MG TAB PO SCH (10:00)
[2018-07-09] MEDS: DOCUSATE 100 MG CAP PO SCH (10:00)
[2018-07-09] MEDS ORDERED: IV FLUID CONTINUATION 1,000 ML IV ONE (14:17)
[2018-07-09] MEDS ORDERED: KETAMINE 10 MG/ML 20 ML VIAL ONE (15:26)
[2018-07-09] MEDS ORDERED: PROPOFOL 10 MG/ML 20 ML VIAL IV ONE (15:26)
[2018-07-09] MEDS ORDERED: GLYCOPYRROLATE 0.2 MG/ML 2 ML VIAL ONE (15:26)
[2018-07-09] MEDS ORDERED: fentaNYL (PF) 50 MCG/ML 2 ML AMP ONE (15:26)
[2018-07-09] MEDS ORDERED: MIDAZOLAM 2 MG/2 ML VIAL ONE (15:26)
[2018-07-09] MEDS ORDERED: TEMAZEPAM 15 MG CAP PO PRN (15:35)
[2018-07-09] MEDS ORDERED: SENNOSIDES-DOCUSATE SODIUM 1 EACH TAB PO PRN (15:35)
[2018-07-09] MEDS ORDERED: diphenhydrAMINE 25 MG CAP PO PRN (15:35)
[2018-07-09] MEDS ORDERED: HYDROmorphone 1 MG/ML 1 ML SYRINGE IVP PRN ×2 (15:35)
[2018-07-09] MEDS ORDERED: HYDROcodone/APAP 5-325MG 1 EACH TAB PO PRN (15:35)
[2018-07-09] MEDS ORDERED: ROPIVACAINE 5 MG/ML 30 ML VIAL MISCELLANE ONE (15:57)
[2018-07-09] MEDS ORDERED: ceFAZolin 1,000 MG in SODIUM CHLORIDE 0.9% 1,000 ML IRRIGATION ONE (15:59)
[2018-07-09] MEDS: ceFAZolin IN SWFI 2 GM/20 ML SYRINGE IVP SCH ×2 (18:14→23:12)
[2018-07-09] MEDS: LACTATED RINGERS 1,000 ML IV SCH (18:14)
[2018-07-09] MEDS: HYDROcodone/APAP 5-325MG 1 EACH TAB PO PRN (19:27)
[2018-07-09 19:33] LABS: Basophils % (A) 0 %; Eosinophils # (A) 0.2 k/uL (0-0.7); Eosinophils % (A) 4 %; HCT 31.3 % (34.0-46.0); HGB 10.1 gm/dL (11.4-16.0); Lymphocytes # (A) 1.5 k/uL (1.0-4.8); Lymphocytes % (A) 26 %; MCH 25.2 pg (25.0-35.0); MCHC 32.4 g/dL (31.0-37.0); MCV 77.9 fL (80.0-100.0); Mean Platelet Volume 7.6; Microcytosis Slight; Monocytes # (A) 0.3 k/uL (0-1.0); Monocytes % (A) 5 %; Neutrophils # (A) 3.8 k/uL (1.3-7.7); Neutrophils % (A) 63 %; Platelet Count 239 k/uL (150-450); RBC 4.02 m/uL (3.80-5.40); RDW 15.3 % (11.5-15.5)
[2018-07-09] MEDS: ATORVASTATIN 40 MG TAB PO SCH (21:55)
[2018-07-09] MEDS: HYDROmorphone 1 MG/ML 1 ML SYRINGE IVP PRN (23:16)
--- NOTE | 2018-07-10 00:06 | OP ---
OPERATIVE REPORT DATE OF PROCEDURE: 07/09/2018. PREOPERATIVE DIAGNOSIS: Left bimalleolar ankle fracture. POSTOPERATIVE DIAGNOSIS: Left bimalleolar ankle fracture. OPERATION PERFORMED: Open reduction, internal fixation, left bimalleolar ankle fracture. SURGEON: Lico Osborne M.D. BUTTERMAKER HELPER: Jesus SWEENEY. ANESTHESIA: Spinal with sedation. ESTIMATED BLOOD LOSS: 50 mL. TOURNIQUET: Time was 40 minutes at 250 mmHg. COMPLICATIONS: None apparent. DRAINS: None. DISPOSITION: Postanesthesia care unit. INDICATIONS: Aracelis is a very pleasant 82-year-old female who fell at home approximately 5 days ago. She initially thought she sprained her ankle. She presented to the emergency department 2 days later. She was found to have a displaced bimalleolar ankle fracture. She was provisionally reduced by the emergency department. Due to the fact she is an independent ambulator, lived at home and could not ambulate with this fracture, we did admit her to my service. She was seen by the medical service preoperatively. She was cleared for surgery. We did follow her swelling and she had just a minimal amount of swelling for the type of injury surgery she had. We deemed it safe to proceed with open reduction, internal fixation of her bimalleolar ankle fracture at this time. The risks of procedure were discussed with her in detail. These risks include, but are not limited to risk of infection, nerve damage, bleeding, pain and risk of deep vein thrombosis which could lead to fatal pulmonary embolism. Further risks include possibility for failure of the hardware or failure of the fracture to heal, which could necessitate further operation. All of her questions with regard to the procedure were answered to her satisfaction. Appropriate informed consent was obtained. DESCRIPTION OF THE PROCEDURE: Patient identified in preoperative holding area. Surgical site was marked by both the patient and myself. She was given 2 g of Ancef IV for prophylactic purposes. She was then transported to the operative suite. She was placed supine on the operative table. Spinal anesthetic was then administered and dosed per the anesthesia without apparent complication. A bump was placed under her left hip to aid in exposure of the lateral malleolus. The tourniquet was also placed high on the left upper thigh well-padded in preparation for surgery. The patient's left lower extremity is then prepped and draped in usual sterile fashion. Standard surgical pause undertaken to ensure that we were operating the correct site and that appropriate preop antibiotics were given. All staff in the room in agreement and we proceeded. The leg was exsanguinated with an Esmarch dressing. The tourniquet was inflated to 250 mmHg. I started with the lateral side. We made a planned 10-12 cm incision starting at the distal tip of the fibula and extending proximally in line with the fibula. This was along the posterior 1/3 of the fibular fibula. Dissection was carried down sharply to the bone. As minimal soft tissue stripping as possible was done. The fracture was very clean oblique Reid B fracture. Was reduced fairly readily with traction and reduction clamps. The reduction was confirmed with fluoroscopic imaging. I then proceeded with fixation of fibular fracture. Utilized a 7 hole Synthes 1/3 tubular plate. This was also confirmed via fluoroscopy. The plate fit very nicely. This gave me 6 cortices of fixation both proximal and distal to the fracture. Plate was then applied with 3 3.5 mm bicortical nonlocking screws proximal to the fracture and 3 4.0 mm cancellous screws distal to the fracture. All screws had fairly good purchase in bone. These were placed in a compression mode to compress the fracture further. I then proceeded with fixation of the medial malleolus fracture. A small 3 cm curvilinear incision over the distal medial malleolus was then made. Dissection was then carried down to the fracture. Great care was taken to avoid any iatrogenic damage to the saphenous nerve or saphenous vein. The fracture was identified. The wound was thoroughly irrigated. There was no incarcerated fractures within the joint. The cartilage appeared good as viewed through the fracture site. The fracture was then reduced with a [id number] clamp. The fracture reduction was confirmed with fluoroscopy. I then placed 2 4.0 mm partially-threaded cannulated screws set for fixation. Both screws had excellent purchase in bone. They were parallel and within the fracture. Fluoroscopic imaging confirmed their placement. At this point time, the ankle was stressed. The mortise was stable. There was not any indication for syndesmotic screws. At this point, we proceeded with closure. The final fluoroscopic images were taken. The wounds were thoroughly irrigated with sterile saline solution with antibiotic added. The tourniquet was deflated at 40 minutes. The deep fascia was closed with 0 Vicryl interrupted suture. Subcutaneous tissue closed with 2-0 Vicryl interrupted suture. The skin was closed with stainless steel lewis. Sterile compressive dressing was then applied. The patient's left lower extremity was then placed into a well-padded posterior molded splint with side stirrups. All sponge and needle counts were deemed correct prior to closure. The patient tolerated the procedure without apparent complication. She was transferred to the recovery room in stable condition. MMODL / IJN: [id number] /
--- NOTE | 2018-07-10 03:08 | P.PN ---
Subjective Progress Note Date: 07/08/18 Principal diagnosis: Left ankle fractures Left ovarian cystic mass Patient is a 82-year-old female with a known history of CVA/TIA, Dementia, GERD/ Reflux, Hyperlipidemia, Hypertension, Memory Impairment, Rheumatoid Arthritis ( RA), peripheral neuropathy with history of diabetes, currently diet-controlled was brought to the ER with complaints of right foot and ankle pain. Patient is a poor historian due to underlying dementia. As per her grandson, patient came home from attending a marriage. After coming home patient was trying to get out of chair and tipped over and fell. Patient's grandson heard the sound and went over to check. Patient denied any hitting her head. No loss of consciousness. Since then she has been complaining of left pain. Patient was having increased swelling and pain which made her to come to the hospital. Denied any neck pain and back pain. No history of seizures. Patient denies any headache, chest pain, shortness of breath, dizziness, weakness, abdominal pain, nausea, vomiting, or difficulties with bowel movements or urination. Recently patient was having urinary incontinence and was seen by urology. Recommended to get ultrasound kidneys. X-ray of the left ankle showed acute displaced trimalleolar fracture with the mortise disruption. Patient is being followed by orthopedic surgery and is planning for OR. Ultrasound renal showed no hydronephrosis. 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 Chest x-ray showed suspected right lower lobe pneumonia. 07/08/2018 Patient denied any complaints of chest pain or shortness of breath. Left ankle pain is much improved. Orthopedics is planning for or tomorrow. No fever no chills. Patient was seen by PROFESSOR COMPUTER SCIENCE for cystic ovarian tumor and outpatient follow-up was recommended. No other acute overnight issues. Current medications reviewed Objective - Vital Signs Vital signs: Vital Signs Temp 97.7 F 07/08/18 15:00 Pulse 78 07/08/18 15:00 Resp 17 07/08/18 15:00 BP 193/78 07/08/18 15:00 Pulse Ox 100 07/08/18 15:00 Intake & Output 07/08/18 07/08/18 07/09/18 06:59 18:59 06:59 Intake Total 200 50 Balance 200 50 Intake: Intake, IV Titration 50 Amount cefTRIAXone 1,000 mg In 50 Sodium Chloride 0.9% 50 ml @ 100 mls/hr IVPB Q24H [facility] Rx#:[id number] Oral 200 Other: Voiding Method Bedpan # Voids 1 - Exam PHYSICAL EXAMINATION: Patient is lying in the bed comfortably, no acute distress, awake alert and oriented x1.. HEENT: Normocephalic. Neck is supple. Pupils reactive. Nostrils clear. Oral cavity is moist. Ears reveal no drainage. Neck reveals no JVD, carotid bruits, or thyromegaly. CHEST EXAMINATION: Trachea is central. Symmetrical expansion. Lung spencer clear to auscultation and percussion. CARDIAC: Normal S1, S2 with no gallops. No murmurs ABDOMEN: Soft. Distended. Bowel sounds normal. No abdominal bruits. Extremities: reveal no edema in the right lower extremity. Left lower extremity /ankle is swollen and Nelson bandaged. No clubbing or cyanosis Neurologically awake, alert, oriented x1 with well-coordinated movements. No focal deficits noted Skin: No rash or skin lesions. Psychiatric: Coperative. Could not be assessed completely Musculoskeletal: No joint swelling or deformity. Normal range of motion in all other joints except above. - Labs CBC & Chem 7: 07/09/18 19:16 10 10:31 Labs: Abnormal Lab Results - Last 24 Hours (Table) 07/08/18 07/08/18 Range/Units 10:31 10:31 Hgb 9.9 L (11.4-16.0) gm/dL Hct 30.5 L (34.0-46.0) % MCV 78.7 L (80.0-100.0) fL Chloride 109 H (98-107) mmol/L BUN 20 H (7-17) mg/dL Creatinine 1.26 H (0.52-1.04) mg/dL Glucose 141 H (74-99) mg/dL Calcium 8.3 L (8.4-10.2) mg/dL Assessment and Plan Assessment: Left ankle fracture status post mechanical fall Possible right lower lobe pneumonia Mild Acute kidney injury with possible CK D3 Recent history of rib fractures as per family. Peripheral neuropathy with history of diabetes. Was on insulin before. Currently diet-controlled Large ovarian cystic tumor. CA-125 was ordered History of CVA/TIA Dementia Alzheimer's GERD Hypertension Hyperlipidemia History of rheumatoid arthritis DVT prophylaxis Plan: Patient will be continued on pain medications and bowel regimen. Continue with home medications and antibiotics in the form of azithromycin and ceftriaxone.. DVT prophylaxis with heparin subcu. Patient does not have active chest pain or shortness of breath. Does history of CVA/TIA and possible CK D-3. Patient is a moderate risk for low risk orthopedic surgery. We will continue to follow closely and further recommendations based on the clinical course. Prognosis is guarded. Discussed with the family in detail at bedside.
--- NOTE | 2018-07-10 03:09 | P.PN ---
Subjective Progress Note Date: 07/09/18 Principal diagnosis: Left ankle fractures Left ovarian cystic mass Patient is a 82-year-old female with a known history of CVA/TIA, Dementia, GERD/ Reflux, Hyperlipidemia, Hypertension, Memory Impairment, Rheumatoid Arthritis ( RA), peripheral neuropathy with history of diabetes, currently diet-controlled was brought to the ER with complaints of right foot and ankle pain. Patient is a poor historian due to underlying dementia. As per her grandson, patient came home from attending a marriage. After coming home patient was trying to get out of chair and tipped over and fell. Patient's grandson heard the sound and went over to check. Patient denied any hitting her head. No loss of consciousness. Since then she has been complaining of left pain. Patient was having increased swelling and pain which made her to come to the hospital. Denied any neck pain and back pain. No history of seizures. Patient denies any headache, chest pain, shortness of breath, dizziness, weakness, abdominal pain, nausea, vomiting, or difficulties with bowel movements or urination. Recently patient was having urinary incontinence and was seen by urology. Recommended to get ultrasound kidneys. X-ray of the left ankle showed acute displaced trimalleolar fracture with the mortise disruption. Patient is being followed by orthopedic surgery and is planning for OR. Ultrasound renal showed no hydronephrosis. 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 Chest x-ray showed suspected right lower lobe pneumonia. 07/08/2018 Patient denied any complaints of chest pain or shortness of breath. Left ankle pain is much improved. Orthopedics is planning for or tomorrow. No fever no chills. Patient was seen by SOLE TACKER for cystic ovarian tumor and outpatient follow-up was recommended. No other acute overnight issues. 07/09/2018 Patient is scheduled for or today for right ankle surgery. No complaints of chest pain or shortness of breath. No other acute overnight issues. Current medications reviewed Objective - Vital Signs Vital signs: Vital Signs Temp 97.9 F 07/09/18 16:59 Pulse 62 07/09/18 21:19 Resp 16 07/09/18 17:30 BP 161/71 07/09/18 21:19 Pulse Ox 97 07/09/18 17:30 Intake & Output 07/09/18 07/09/18 07/10/18 06:59 18:59 06:59 Intake Total 626 Output Total 50 Balance 576 Intake: IV 626 Output: Estimated Blood Loss 50 Other: Voiding Method Bedpan # Voids 2 2 - Exam PHYSICAL EXAMINATION: Patient is lying in the bed comfortably, no acute distress, awake alert and oriented x1.. HEENT: Normocephalic. Neck is supple. Pupils reactive. Nostrils clear. Oral cavity is moist. Ears reveal no drainage. Neck reveals no JVD, carotid bruits, or thyromegaly. CHEST EXAMINATION: Trachea is central. Symmetrical expansion. Lung spencer clear to auscultation and percussion. CARDIAC: Normal S1, S2 with no gallops. No murmurs ABDOMEN: Soft. Distended. Bowel sounds normal. No abdominal bruits. Extremities: reveal no edema in the right lower extremity. Left lower extremity /ankle is swollen and Nelson bandaged. No clubbing or cyanosis Neurologically awake, alert, oriented x1 with well-coordinated movements. No focal deficits noted Skin: No rash or skin lesions. Psychiatric: Coperative. Could not be assessed completely Musculoskeletal: No joint swelling or deformity. Normal range of motion in all other joints except above. - Labs CBC & Chem 7: 07/09/18 19:16 07/08/18 10:31 Labs: Abnormal Lab Results - Last 24 Hours (Table) 07/08/18 07/09/18 07/09/18 Range/Units 10:35 01:13 19:16 Hgb 10.1 L (11.4-16.0) gm/dL Hct 31.3 L (34.0-46.0) % MCV 77.9 L (80.0-100.0) fL POC Glucose (mg/dL) 149 H (75-99) mg/dL CA 125 Antigen 50.2 H (0.0-30.1) U/mL Assessment and Plan Assessment: Left ankle fracture status post mechanical fall Possible right lower lobe pneumonia Mild Acute kidney injury with possible CK D3 Recent history of rib fractures as per family. Peripheral neuropathy with history of diabetes. Was on insulin before. Currently diet-controlled Large ovarian cystic tumor. CA-125 was ordered History of CVA/TIA Dementia Alzheimer's GERD Hypertension Hyperlipidemia History of rheumatoid arthritis DVT prophylaxis Plan: Patient will be continued on pain medications and bowel regimen. Continue with home medications and antibiotics in the form of azithromycin and ceftriaxone.. DVT prophylaxis with heparin subcu. Patient does not have active chest pain or shortness of breath. Does history of CVA/TIA and possible CK D-3. Patient is a moderate risk for low risk orthopedic surgery. We will continue to follow closely and further recommendations based on the clinical course. Prognosis is guarded. Discussed with the family in detail at bedside.
[2018-07-10] MEDS: HYDROmorphone 1 MG/ML 1 ML SYRINGE IVP PRN ×3 (05:52→20:26)
[2018-07-10] MEDS: LACTATED RINGERS 1,000 ML IV SCH ×3 (06:21→23:22)
[2018-07-10] MEDS: amLODIPine 5 MG TAB PO SCH (06:45)
[2018-07-10] MEDS: LISINOPRIL 20 MG TAB PO SCH (06:45)
--- NOTE | 2018-07-10 08:32 | FL ---
Fluoroscopy HISTORY: Open reduction internal fixation, fracture 12 seconds fluoroscopy time supplied to the referring clinician. 4 intraoperative C-arm images docum ent the procedure. See dictated report from orthopedic surgery.
--- NOTE | 2018-07-10 08:33 | XR ---
left ankle HISTORY: Open reduction internal fixation 4 intraoperative C-arm images document the procedure.
[2018-07-10] MEDS: AZITHROMYCIN 500 MG TAB PO SCH (08:47)
[2018-07-10] MEDS: HEPARIN SODIUM,PORCINE 5,000 UNIT/ML 1 ML VIAL SQ SCH ×3 (08:47→23:27)
[2018-07-10] MEDS: DOCUSATE 100 MG CAP PO SCH (08:47)
[2018-07-10] MEDS: MEMANTINE 10 MG TAB PO SCH ×2 (08:47→20:26)
[2018-07-10] MEDS: DULoxetine HCL 20 MG CAPSULE.DR PO SCH (08:47)
--- NOTE | 2018-07-10 10:13 | P.PN ---
Subjective Progress Note Date: 07/10/18 Principal diagnosis: Ankle fracture and pelvic mass Patient underwent went on ORIF of ankle fracture yesterday. She reports she is feeling well. she is oriented to person only. Objective - Vital Signs Vital signs: Vital Signs Temp 99.7 F H 07/10/18 06:52 Pulse 81 07/10/18 06:52 Resp 16 07/10/18 06:52 BP 180/85 07/10/18 06:52 Pulse Ox 98 07/10/18 06:52 Intake & Output 07/09/18 07/10/18 07/10/18 18:59 06:59 18:59 Intake Total 626 Output Total 50 800 Balance 576 -800 Intake: IV 626 Output: Urine 800 Straight 400 Estimated Blood Loss 50 Other: Voiding Method Bedpan Bedpan # Voids 2 - Constitutional General appearance: Present: average body habitus, no acute distress - Gastrointestinal General gastrointestinal: Absent: distended, tenderness - Psychiatric Psychiatric: Present: appropriate affect. Absent: A&O x's 3 - Labs CBC & Chem 7: 07/09/18 19:16 07/08/18 10:31 Labs: Abnormal Lab Results - Last 24 Hours (Table) 07/09/18 Range/Units 19:16 Hgb 10.1 L (11.4-16.0) gm/dL Hct 31.3 L (34.0-46.0) % MCV 77.9 L (80.0-100.0) fL Assessment and Plan (1) Pelvic mass Narrative/Plan: 82-year-old woman admitted for evaluation and repair of left ankle fracture who is now status post ORIF. 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 CA 125 level is slightly elevated at 50.2 , upper limits of normal 30.0. I reviewed this with the patient's daughter, Aislinn, in detail. Surgical tissue diagnosis at this point is the only way to rule in or out a malignancy. In light of her other comorbidities: dementia and recent orthopedic fracture, I recommend that we allow her to heal from this surgery and follow-up in the office setting in 2 weeks to further discuss diagnosis and treatment options. At that time I will recommend we repeat a CA 125 and some additional tumor markers and pelvic ultrasound to better determine plan of care. 20 minutes were spent in discussion with the patient's daughter. She has my contact information and will make a follow-up appointment in 2 weeks from discharge. Current Visit: Yes Status: Acute Code(s): R19.00 - INTRA-ABD AND PELVIC SWELLING, MASS AND LUMP, UNSP SITE SNOMED Code(s): 92095965 (2) Fracture dislocation of left ankle Current Visit: Yes Status: Acute Priority: Medium Code(s): S82.892A - OTH FRACTURE OF LEFT LOWER LEG, INIT FOR CLOS FX SNOMED Code(s): 090121347 (3) Trimalleolar fracture of left ankle Current Visit: Yes Status: Acute Priority: Medium Code(s): S82.852A - DISPLACED TRIMALLEOLAR FRACTURE OF LEFT LOWER LEG, INIT SNOMED Code(s): 494014316
[2018-07-10] MEDS: HYDROcodone/APAP 5-325MG 1 EACH TAB PO PRN (12:25)
--- NOTE | 2018-07-10 14:13 | P.PN ---
Subjective Progress Note Date: 07/10/18 Principal diagnosis: Left Trimal ankle fracture Patient is seen at bedside this morning. She is postop day #1 from ORIF of left trimal ankle fracture. She has pain at the surgical site as expected but denies any new complaints. She denies new numbness, tingling or calf pain. Review of systems is negative for fever, chills, chest pain, shortness of breath or other Objective - Vital Signs Vital signs: Vital Signs Temp 99.7 F H 07/10/18 06:52 Pulse 81 07/10/18 08:00 Resp 16 07/10/18 08:00 BP 180/85 07/10/18 06:52 Pulse Ox 98 07/10/18 06:52 Intake & Output 07/09/18 07/10/18 07/10/18 18:59 06:59 18:59 Intake Total 626 Output Total 50 800 Balance 576 -800 Intake: IV 626 Output: Urine 800 Straight 400 Estimated Blood Loss 50 Other: Voiding Method Bedpan Bedpan Bedpan # Voids 2 - Exam Inspection reveals a well padded splint in place. There is no active bleeding or drainage. Neurovascular status is intact throughout the lower extremity with motor and sensation fully intact distally. Calf is soft and nontender. Less than 2 second cap refill is present in all toes. - Constitutional General appearance: Present: no acute distress - Labs CBC & Chem 7: 07/09/18 19:16 07/08/18 10:31 Labs: Abnormal Lab Results - Last 24 Hours (Table) 07/09/18 Range/Units 19:16 Hgb 10.1 L (11.4-16.0) gm/dL Hct 31.3 L (34.0-46.0) % MCV 77.9 L (80.0-100.0) fL Assessment and Plan (1) Fracture dislocation of left ankle Narrative/Plan: She will continue with routine postop orthopedic protocol including pain management, wound care, DVT prophylaxis and medical management. Patient and her family do not desire ECF placement. Expect that she will D/C to home tomorrow, Friday if ok with IM. Current Visit: Yes Status: Acute Priority: Medium Code(s): S82.892A - OTH FRACTURE OF LEFT LOWER LEG, INIT FOR CLOS FX SNOMED Code(s): 213216466 (2) Trimalleolar fracture of left ankle Current Visit: Yes Status: Acute Priority: Medium Code(s): S82.852A - DISPLACED TRIMALLEOLAR FRACTURE OF LEFT LOWER LEG, INIT SNOMED Code(s): 173807918 Time with Patient: Less than 30
[2018-07-10] MEDS: ATORVASTATIN 40 MG TAB PO SCH (20:26)
[2018-07-11] MEDS: MELATONIN 5 MG TABLET PO PRN (00:05)
[2018-07-11] MEDS: HYDROmorphone 1 MG/ML 1 ML SYRINGE IVP PRN ×2 (05:11→11:00)
[2018-07-11] MEDS: AZITHROMYCIN 500 MG TAB PO SCH (09:05)
[2018-07-11] MEDS: MEMANTINE 10 MG TAB PO SCH ×2 (09:05→21:41)
[2018-07-11] MEDS: DOCUSATE 100 MG CAP PO SCH (09:05)
[2018-07-11] MEDS: LISINOPRIL 20 MG TAB PO SCH (09:06)
[2018-07-11] MEDS: HEPARIN SODIUM,PORCINE 5,000 UNIT/ML 1 ML VIAL SQ SCH ×2 (09:06→17:12)
[2018-07-11] MEDS: DULoxetine HCL 20 MG CAPSULE.DR PO SCH (09:06)
[2018-07-11] MEDS: amLODIPine 5 MG TAB PO SCH (09:06)
--- NOTE | 2018-07-11 09:47 | P.PN ---
Subjective Progress Note Date: 07/11/18 Principal diagnosis: Left Trimal ankle fracture Patient is seen at bedside this morning. She is postop day #2 from ORIF of left trimal ankle fracture. She has pain at the surgical site as expected but denies any new complaints. She denies new numbness, tingling or calf pain. Review of systems is negative for fever, chills, chest pain, shortness of breath or other Objective - Vital Signs Vital signs: Vital Signs Temp 98.4 F 07/11/18 07:00 Pulse 74 07/11/18 07:00 Resp 16 07/11/18 07:00 BP 181/87 07/11/18 07:00 Pulse Ox 96 07/11/18 07:00 Intake & Output 07/10/18 07/11/18 07/11/18 18:59 06:59 18:59 Intake Total 400 300 Balance 400 300 Intake: Oral 400 300 Other: Voiding Method Bedpan Bedpan # Voids 2 1 # Bowel Movements 0 0 - Exam Inspection reveals a well padded splint in place. There is no active bleeding or drainage. Neurovascular status is intact throughout the lower extremity with motor and sensation fully intact distally. Calf is soft and nontender. Less than 2 second cap refill is present in all toes. - Constitutional General appearance: Present: no acute distress - Labs CBC & Chem 7: 07/09/18 19:16 07/08/18 10:31 Assessment and Plan (1) Fracture dislocation of left ankle Narrative/Plan: She will continue with routine postop orthopedic protocol including pain management, wound care, DVT prophylaxis and medical management. Patient and her family do not desire ECF placement. Expect that she will D/C to home this weekend if ok with IM. Current Visit: Yes Status: Acute Priority: Medium Code(s): S82.892A - OTH FRACTURE OF LEFT LOWER LEG, INIT FOR CLOS FX SNOMED Code(s): 542786925 (2) Trimalleolar fracture of left ankle Current Visit: Yes Status: Acute Priority: Medium Code(s): S82.852A - DISPLACED TRIMALLEOLAR FRACTURE OF LEFT LOWER LEG, INIT SNOMED Code(s): 941331132 Time with Patient: Less than 30
[2018-07-11] MEDS: LACTATED RINGERS 1,000 ML IV SCH ×2 (11:33→17:17)
--- NOTE | 2018-07-11 11:41 | P.PN ---
Subjective Progress Note Date: 07/10/18 Principal diagnosis: Left ankle fractures Left ovarian cystic mass Right lower lobe pneumonia Patient is a 82-year-old female with a known history of CVA/TIA, Dementia, GERD/ Reflux, Hyperlipidemia, Hypertension, Memory Impairment, Rheumatoid Arthritis ( RA), peripheral neuropathy with history of diabetes, currently diet-controlled was brought to the ER with complaints of right foot and ankle pain. Patient is a poor historian due to underlying dementia. As per her grandson, patient came home from attending a marriage. After coming home patient was trying to get out of chair and tipped over and fell. Patient's grandson heard the sound and went over to check. Patient denied any hitting her head. No loss of consciousness. Since then she has been complaining of left pain. Patient was having increased swelling and pain which made her to come to the hospital. Denied any neck pain and back pain. No history of seizures. Patient denies any headache, chest pain, shortness of breath, dizziness, weakness, abdominal pain, nausea, vomiting, or difficulties with bowel movements or urination. 07/10/2018 Patient is status post ORIF; POD #1 Detailed discussion about patient's condition and prognosis with daughter at bedside; daughter does want complete evaluation and treatment of pelvic mass We did discuss continuing IV antibiotics, Rocephin 1 g daily and Zithromax 500 mg daily; possible switch to oral antibiotics in next 24 hours Objective - Vital Signs Vital signs: Vital Signs Temp 99.7 F H 07/10/18 06:52 Pulse 81 07/10/18 06:52 Resp 16 07/10/18 06:52 BP 180/85 07/10/18 06:52 Pulse Ox 98 07/10/18 06:52 Intake & Output 07/09/18 07/10/18 07/10/18 18:59 06:59 18:59 Intake Total 626 Output Total 50 800 Balance 576 -800 Intake: IV 626 Output: Urine 800 Straight 400 Estimated Blood Loss 50 Other: Voiding Method Bedpan Bedpan # Voids 2 - Exam Patient is lying in the bed comfortably, no acute distress, awake alert and oriented x1.. HEENT: Normocephalic. Neck is supple. Pupils reactive. Nostrils clear. Oral cavity is moist. Ears reveal no drainage. Neck reveals no JVD, carotid bruits, or thyromegaly. CHEST EXAMINATION: Trachea is central. Symmetrical expansion. Lung spencer clear to auscultation and percussion. CARDIAC: Normal S1, S2 with no gallops. No murmurs ABDOMEN: Soft. Distended. Bowel sounds normal. No abdominal bruits. Extremities: reveal no edema in the right lower extremity. Left lower extremity /ankle is swollen and Nelson bandaged. No clubbing or cyanosis Neurologically awake, alert, oriented x1 with well-coordinated movements. No focal deficits noted Skin: No rash or skin lesions. Psychiatric: Coperative. Could not be assessed completely Musculoskeletal: No joint swelling or deformity. Normal range of motion in all other joints except above. - Labs CBC & Chem 7: 07/09/18 19:16 07/08/18 10:31 Labs: Abnormal Lab Results - Last 24 Hours (Table) 07/09/18 Range/Units 19:16 Hgb 10.1 L (11.4-16.0) gm/dL Hct 31.3 L (34.0-46.0) % MCV 77.9 L (80.0-100.0) fL Assessment and Plan Assessment: 1. Left ankle fracture status post mechanical fall; status post open reduction internal fixation; POD# 1 2. Possible right lower lobe pneumonia; 3. Mild Acute kidney injury with possible CK D3 4. Recent history of rib fractures as per family. 5. Peripheral neuropathy with history of diabetes. Was on insulin before. Currently diet-controlled 6. Large ovarian cystic tumor. CA-125 was ordered 7. History of CVA/TIA 8. Dementia Alzheimer's 9. GERD 10. Hypertension 11. Hyperlipidemia 12. History of rheumatoid arthritis 13. DVT prophylaxis Plan: Patient will be continued on pain medications and bowel regimen. Continue with home medications and antibiotics in the form of azithromycin and ceftriaxone.. DVT prophylaxis with heparin subcu. Patient does not have active chest pain or shortness of breath. Does history of CVA/TIA and possible CK D-3. Patient is a moderate risk for low risk orthopedic surgery. We will continue to follow closely and further recommendations based on the clinical course. Prognosis is guarded. Discussed with the family in detail at bedside.
--- NOTE | 2018-07-11 11:43 | P.PN ---
Subjective Progress Note Date: 07/11/18 Principal diagnosis: Left ankle fractures Left ovarian cystic mass Right lower lobe pneumonia Patient is a 82-year-old female with a known history of CVA/TIA, Dementia, GERD/ Reflux, Hyperlipidemia, Hypertension, Memory Impairment, Rheumatoid Arthritis ( RA), peripheral neuropathy with history of diabetes, currently diet-controlled was brought to the ER with complaints of right foot and ankle pain. Patient is a poor historian due to underlying dementia. As per her grandson, patient came home from attending a marriage. After coming home patient was trying to get out of chair and tipped over and fell. Patient's grandson heard the sound and went over to check. Patient denied any hitting her head. No loss of consciousness. Since then she has been complaining of left pain. Patient was having increased swelling and pain which made her to come to the hospital. Denied any neck pain and back pain. No history of seizures. Patient denies any headache, chest pain, shortness of breath, dizziness, weakness, abdominal pain, nausea, vomiting, or difficulties with bowel movements or urination. 07/10/2018 Patient is status post ORIF; POD #1 Detailed discussion about patient's condition and prognosis with daughter at bedside; daughter does want complete evaluation and treatment of pelvic mass We did discuss continuing IV antibiotics, Rocephin 1 g daily and Zithromax 500 mg daily; possible switch to oral antibiotics in next 24 hours 07/11/2018 Patient is sitting up comfortably in bed; family members are present at bedside ; we did discuss switching patient to oral antibiotics in the form of Ceftin 500 mg daily to complete a total of 10 day therapy; patient had and family have refused skilled rehab; patient is stable to be discharged home with home health care on oral antibiotics from medical standpoint Objective - Vital Signs Vital signs: Vital Signs Temp 98.4 F 07/11/18 07:00 Pulse 74 07/11/18 07:00 Resp 16 07/11/18 07:00 BP 181/87 07/11/18 07:00 Pulse Ox 96 07/11/18 07:00 Intake & Output 07/10/18 07/11/18 07/11/18 18:59 06:59 18:59 Intake Total 400 300 Balance 400 300 Intake: Oral 400 300 Other: Voiding Method Bedpan Bedpan # Voids 2 1 # Bowel Movements 0 0 - Exam Patient is lying in the bed comfortably, no acute distress, awake alert and oriented x1.. HEENT: Normocephalic. Neck is supple. Pupils reactive. Nostrils clear. Oral cavity is moist. Ears reveal no drainage. Neck reveals no JVD, carotid bruits, or thyromegaly. CHEST EXAMINATION: Trachea is central. Symmetrical expansion. Lung spencer clear to auscultation and percussion. CARDIAC: Normal S1, S2 with no gallops. No murmurs ABDOMEN: Soft. Distended. Bowel sounds normal. No abdominal bruits. Extremities: reveal no edema in the right lower extremity. Left lower extremity /ankle is swollen and Nelson bandaged. No clubbing or cyanosis Neurologically awake, alert, oriented x1 with well-coordinated movements. No focal deficits noted Skin: No rash or skin lesions. Psychiatric: Coperative. Could not be assessed completely Musculoskeletal: No joint swelling or deformity. Normal range of motion in all other joints except above. - Labs CBC & Chem 7: 07/09/18 19:16 07/08/18 10:31 Assessment and Plan Assessment: 1. Left ankle fracture status post mechanical fall; status post open reduction internal fixation; POD# 1 2. Possible right lower lobe pneumonia; 3. Mild Acute kidney injury with possible CK D3 4. Recent history of rib fractures as per family. 5. Peripheral neuropathy with history of diabetes. Was on insulin before. Currently diet-controlled 6. Large ovarian cystic tumor. CA-125 was ordered 7. History of CVA/TIA 8. Dementia Alzheimer's 9. GERD 10. Hypertension 11. Hyperlipidemia 12. History of rheumatoid arthritis 13. DVT prophylaxis Plan: Patient will be continued on pain medications and bowel regimen. Continue with home medications and antibiotics in the form of azithromycin and ceftriaxone.. DVT prophylaxis with heparin subcu. Patient does not have active chest pain or shortness of breath. Does history of CVA/TIA and possible CK D-3. Patient is a moderate risk for low risk orthopedic surgery. We will continue to follow closely and further recommendations based on the clinical course. Prognosis is guarded. Discussed with the family in detail at bedside. Time with Patient: Greater than 30
[2018-07-11 15:58] VITALS: RESP 20
[2018-07-11] MEDS: ATORVASTATIN 40 MG TAB PO SCH (21:41)
[2018-07-12] MEDS: HEPARIN SODIUM,PORCINE 5,000 UNIT/ML 1 ML VIAL SQ SCH ×2 (00:02→07:59)
[2018-07-12] MEDS: HYDROmorphone 1 MG/ML 1 ML SYRINGE IVP PRN (01:07)
[2018-07-12] MEDS: LACTATED RINGERS 1,000 ML IV SCH ×2 (06:14→12:42)
[2018-07-12] MEDS: amLODIPine 5 MG TAB PO SCH (06:51)
[2018-07-12 07:03] VITALS: TEMP 97.1
[2018-07-12] MEDS: AZITHROMYCIN 500 MG TAB PO SCH (07:59)
[2018-07-12] MEDS: MEMANTINE 10 MG TAB PO SCH (07:59)
[2018-07-12] MEDS: DOCUSATE 100 MG CAP PO SCH (07:59)
[2018-07-12] MEDS: LISINOPRIL 20 MG TAB PO SCH (07:59)
[2018-07-12] MEDS: DULoxetine HCL 20 MG CAPSULE.DR PO SCH (07:59)
[2018-07-12 09:54] VITALS: BP 181/82; PULSE 58
--- NOTE | 2018-07-12 09:58 | P.DS ---
Providers Date of admission: 07/06/18 18:22 Expected date of discharge: 07/12/18 Attending physician: Lico Osborne Consults: 07/06/18 18:49 Consult Physician Routine Consulting Provider: Carmen Ricketts Consult Reason/Comments: Preoperative Clearance Do you want consulting provider notified?: Yes 07/07/18 22:08 Consult Physician Routine Consulting Provider: Cailin Guadalupe Consult Reason/Comments: Pelvic Mass Do you want consulting provider notified?: Yes, Notify in am Primary care physician: Rajeev Kyle - Discharge Diagnosis(es) (1) Fracture dislocation of left ankle Patient was admitted to the OR on 07/09/2018 to undergo ORIF left ankle fracture. She desired to proceed with elective surgery after given informed consent. She underwent the above procedure which she tolerated well without complication. Postoperative hospital course has remained without complication. On day of discharge she is afebrile, vital signs stable, labs within acceptable ranges, tolerating by mouth meds and diet, voiding without difficulty , positive flatus, denies abdominal pain or calf pain, pain is controlled on oral pain medication and has no new complaints. Wound is benign, neurovascular status is intact, calf is soft and nontender, abdomen soft and nontender. Review of systems is negative for numbness, tingling, fever, chills, chest pain , shortness breath, nausea, vomiting, dizziness, headaches, slurred speech or other. Current Visit: Yes Status: Acute Priority: Medium (2) Trimalleolar fracture of left ankle Current Visit: Yes Status: Acute Priority: Medium Procedures: ORIF left ankle Fx Patient Condition at Discharge: Fair Plan - Discharge Summary Discharge Rx Participant: Yes New Discharge Prescriptions: New Aspirin 325 mg PO BID #60 tab HYDROcodone/APAP 7.5-325MG [[place] 7.5-325] 1 - 2 each PO Q6HR PRN #56 tab PRN Reason: Pain No Action Memantine [Namenda] 10 mg PO BID DULoxetine HCL [Cymbalta] 20 mg PO DAILY Benazepril HCl 20 mg PO DAILY Atorvastatin [Lipitor] 40 mg PO HS Docusate [Colace] 100 mg PO DAILY Acetaminophen [Tylenol] 325 mg PO Q4H PRN PRN Reason: Pain Or Fever > 100.5 Multivitamins, Thera [Multivitamin (formulary)] 1 tab PO DAILY Calcium Carbonate [Calcium] 600 mg PO DAILY Discharge Medication List Acetaminophen [Tylenol] 325 mg PO Q4H PRN 07/06/18 [History] Atorvastatin [Lipitor] 40 mg PO HS 07/06/18 [History] Benazepril HCl 20 mg PO DAILY 07/06/18 [History] Calcium Carbonate [Calcium] 600 mg PO DAILY 07/06/18 [History] DULoxetine HCL [Cymbalta] 20 mg PO DAILY 07/06/18 [History] Docusate [Colace] 100 mg PO DAILY 07/06/18 [History] Memantine [Namenda] 10 mg PO BID 07/06/18 [History] Multivitamins, Thera [Multivitamin (formulary)] 1 tab PO DAILY 07/06/18 [History ] Aspirin 325 mg PO BID #60 tab 07/10/18 [Rx] HYDROcodone/APAP 7.5-325MG [[place] 7.5-325] 1 - 2 each PO Q6HR PRN #56 tab [Rx] Follow up Appointment(s)/Referral(s): Jesus Dillard PAC [PHYSICIAN SAFETY SEALER] - 2 Weeks [facility], [NON-STAFF] - As Needed Rajeev Kyle MD [Primary Care Provider] - 1-2 days Patient Instructions/Handouts: ORIF of an Ankle Fracture (DC) Activity/Diet/Wound Care/Special Instructions: Walker and hospital bed ordered through [facility]: #[phone] Wants pneumo vaccine on discharge. Fall precautions, up with assist, non weight bearing to Left foot. Cardiac diet. Maintain splint, Keep clean and dry Take meds as directed Follow-up with Dr. Osborne in office Non weightbearing Discharge Disposition: HOME WITH HOME HEALTH SERVICES
== END 2018-07-12 15:11 | disposition home health service (06) | DRG 492 ==
LOC: EC 14:35 → 4MS4W 18:22
PROVIDERS: ADMIT Orthopaedic Surgery Sports Medicine; ATTEND Orthopaedic Surgery Sports Medicine
PROC: 0QSKXZZ Reposition Left Fibula, External Approach (ICD-10-PCS; 2018-07-06)
PROC: 0QSH04Z Reposition Left Tibia with Internal Fixation Device, Open Approach (ICD-10-PCS; 2018-07-09)
PROC: 0QSK04Z Reposition Left Fibula with Internal Fixation Device, Open Approach (ICD-10-PCS; principal; 2018-07-09 16:30)
DX: S82.842A Displaced bimalleolar fracture of left lower leg, initial encounter for closed fracture (principal); J18.9 Pneumonia, unspecified organism; N17.9 Acute kidney failure, unspecified; E11.42 Type 2 diabetes mellitus with diabetic polyneuropathy; E11.22 Type 2 diabetes mellitus with diabetic chronic kidney disease; N18.3 Chronic kidney disease, stage 3 (moderate); G30.9 Alzheimer's disease, unspecified; F02.80 Dementia in other diseases classified elsewhere, unspecified severity, without behavioral disturbance, psychotic disturbance, mood disturbance, and anxiety; M06.9 Rheumatoid arthritis, unspecified; I12.9 Hypertensive chronic kidney disease with stage 1 through stage 4 chronic kidney disease, or unspecified chronic kidney disease; N83.209 Unspecified ovarian cyst, unspecified side; E78.5 Hyperlipidemia, unspecified; R32 Unspecified urinary incontinence; R33.9 Retention of urine, unspecified; K21.9 Gastro-esophageal reflux disease without esophagitis; Z79.899 Other long term (current) drug therapy; Z86.73 Personal history of transient ischemic attack (TIA), and cerebral infarction without residual deficits; Z90.710 Acquired absence of both cervix and uterus; W07.XXXA Fall from chair, initial encounter; Y92.009 Unspecified place in unspecified non-institutional (private) residence as the place of occurrence of the external cause; Z83.3 Family history of diabetes mellitus
CPT/HCPCS: 27818; 71045; 76770; 80048; 80053; 85025; 85610; 85730; 86304; 86850; 86900; 86901; 96374; 99152; 99153; 99284